=== PATIENT | female | born 1965 | race African-American/Black ===

== ENCOUNTER 2017-02-28 18:09 | Emergency (ER) | payer OTHER ==
[2017-02-28 17:37] LABS: URINE SOURCE CLEAN CATCH
[2017-02-28 17:41] LABS: URINE APPEARANCE CLOUDY; URINE BILIRUBIN NEG (NEG); URINE BLOOD NEG (NEG); URINE COLOR YELLOW; URINE GLUCOSE NEG (NEG); URINE KETONE NEG (NEG); URINE LEUKOCYTE ESTERASE NEG (NEG); URINE NITRATE NEG (NEG); URINE PH 5.5 (5-8); URINE PROTEIN NEG (NEG); URINE SPECIFIC GRAVITY 1.022 (1.003-1.035); URINE UROBILINOGEN 0.2 MG/DL (NEG)
[2017-02-28 17:54] LABS: CULTURE INDICATED? NO
[~2017-02-28 18:09] MED LIST: AMLODIPINE BESY10 MG PO; ASPIRIN81 M2 PO; NAPROSYN500 MG PO; ZESTRIL40 MG PO
== END 2017-02-28 18:49 | disposition home or self-care (01) ==
LOC: CED 18:09
DX: R07.89 Other chest pain (principal); I10 Essential (primary) hypertension; E11.9 Type 2 diabetes mellitus without complications; Z90.49 Acquired absence of other specified parts of digestive tract
CPT/HCPCS: 81003; 84703; 99284